=== PATIENT | female | born 1965 | race African-American/Black ===

== ENCOUNTER 2019-05-20 11:59 | Emergency (ER) | payer OTHER ==
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
[2019-05-20] MEDS ORDERED: morphine CARPU-JECT 2 MG/1 ML DISP.SYRIN IVPUSH ONE (12:41)
[2019-05-20] MEDS ORDERED: KETOROLAC TROMETHAMINE 30 MG/1 ML VIAL IM ONE (12:48)
[2019-05-20 12:51] VITALS: BP 167/78; PULSE 81; TEMP 98.5; BMI 54.6
[2019-05-20] MEDS ORDERED: KETOROLAC TROMETHAMINE 30 MG/1 ML VIAL ONE (12:54)
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
== END 2019-05-20 14:47 | disposition home or self-care (01) ==
LOC: JER 11:59
PROC: 3E0233Z Introduction of Anti-inflammatory into Muscle, Percutaneous Approach (ICD-10-PCS; principal; 2019-05-20)
DX: S13.4XXA Sprain of ligaments of cervical spine, initial encounter (principal); V43.52XA Car driver injured in collision with other type car in traffic accident, initial encounter; Y93.89 Activity, other specified; Y92.410 Unspecified street and highway as the place of occurrence of the external cause; I10 Essential (primary) hypertension; E11.9 Type 2 diabetes mellitus without complications; I25.10 Atherosclerotic heart disease of native coronary artery without angina pectoris
CPT/HCPCS: 70450-TC; 84703; 99281-25

== ENCOUNTER 2019-10-21 07:02 | Day surgery (SDC) | payer OTHER ==
[2019-10-19 12:41] VITALS: BMI 45.1
[2019-10-21] MEDS ORDERED: MIDAZOLAM HCL 2 MG/2 ML SINGLE DOSE VIAL ONE (07:48)
[2019-10-21] MEDS ORDERED: ROPIVACAINE HCL 0.5% 30ML VIAL ONE (07:48)
[2019-10-21] MEDS ORDERED: PROPOFOL 20 ML ONE ×2 (08:50)
[2019-10-21] MEDS ORDERED: KETAMINE HCL 200 MG/20 ML VIAL ONE (08:51)
[2019-10-21] MEDS ORDERED: SODIUM CHLORIDE 0.9% P/F 10 ML VIAL IJ ONE (08:54)
[2019-10-21] MEDS ORDERED: ceFAZolin SODIUM 1 GM VIAL ONE ×2 (08:54→08:56)
[2019-10-21] MEDS ORDERED: KETOROLAC TROMETHAMINE 30 MG/1 ML VIAL ONE (08:54)
[2019-10-21] MEDS ORDERED: oxyCODONE HCL 5 MG TABLET PO PRN ×2 (09:24)
[2019-10-21] MEDS ORDERED: ONDANSETRON 4 MG/2 ML VIAL IVPUSH PRN (09:24)
[2019-10-21] MEDS ORDERED: LACTATED RINGERS SOLUTION 1,000 ML IV SCH (09:30)
[2019-10-21 10:27] VITALS: TEMP 97.6
[2019-10-21 11:47] VITALS: BP 148/82; PULSE 64
--- NOTE | 2019-10-21 13:22 | OP ---
DATE OF OPERATION: 10/21/2019 Done at [facility] SURGEON: Amelie Vallejo MD IMPLEMENTATION ANALYST: CANDIDA Gil PREOPERATIVE DIAGNOSES: 1. Left shoulder adhesive capsulitis. 2. Left shoulder impingement syndrome. 3. Left shoulder acromioclavicular degenerative joint disease. 4. Left shoulder superior labral tear, anterior and posterior with synovitis. 5. Left shoulder biceps tendon tear. POSTOPERATIVE DIAGNOSES: 1. Left shoulder adhesive capsulitis. 2. Left shoulder impingement syndrome. 3. Left shoulder acromioclavicular degenerative joint disease. 4. Left shoulder superior labral tear, anterior and posterior with synovitis. 5. Left shoulder biceps tendon tear. PROCEDURES: 1. Left shoulder arthroscopy with lysis and resection of adhesions, CPT code 94235. 2. Left shoulder arthroscopy with subacromial decompression, CPT code 07034. 3. Left shoulder arthroscopy with resection of distal clavicle acromioclavicular joint, CPT code 07063. 4. Left shoulder arthroscopy with debridement, CPT code 73369. 5. Left shoulder arthroscopy with biceps tendon release, CPT code 94711. FINDINGS: 1. Glenohumeral synovitis extensive with scar tissue and adhesions with extensive synovitis. 2. Biceps tendon tear with dislocation out of the biceps groove anteriorly and grade 4 superior labral tear anterior, posterior. 3. Posterior labral fraying. 4. Anterior labral fraying. 5. Partial rotator cuff tear, anterior supraspinatus 15%. 6. Type 3 acromion with anterior spur. 7. Inferior spurs to clavicle, acromioclavicular joint disease. 8. with adhesions and scar tissue. PROCEDURE: Informed consent was obtained. The patient was taken to the operating room, where the upper extremity was prepped and draped in a sterile fashion. A scalene block was performed by Anesthesia. Manipulation under anesthesia was allowed for full range of motion. Using standard arthroscopic technique, a posterior incision portal was made, which allowed for introduction of a camera into the glenohumeral joint. Under direct visualization, an anterior incision and portal was made. Extensive and thickened synovitis was debrided. Fraying of the labrum was debrided and the superior labrum from anterior to posterior was identified with all loose areas debrided. Any labral tears were taken to a stable rim including identified SLAP lesions. All loose cartilage was debrided. The rotator cuff was identified and evaluated, as were the subacromial and bursal surfaces. The posterior incision portal was redirected to the subacromial space, where a lateral incision and portal was made. Excessive and thickened synovium was removed throughout the subacromial space including the anterior scar tissue, posterior bursa and lateral bursa. The type 2 acromion was converted to a flattened type 1, removing the anterior and lateral spurring. An accessory portal was made at the acromioclavicular joint, removing the inferior spur of the distal clavicle at the acromioclavicular joint allowing for a distal clavicle partial resection. Please note that 1cm of undersurface of clavicle was removed extending into the intra articular portion and through an accessory portal. The shoulder was once again reexamined and all impingement was removed. The shoulder was drained. A single suture was placed in all portals and a sterile dressing was placed. The patient was transferred to the recovery room without complication. Due to the extensive nature and tearing of the biceps and attachment to the superior labrum, a release was performed to allow for release of it taking the tendon out of the joint. The PA listed above was present and assisted at surgery. Their presence was absolutely medically necessary for the completion of the procedure. They helped hold the arthroscopy, pass instruments (and implants when indicated) and the procedure could not have been completed without their assistance. AMELIE VALLEJO M.D. [id number]
== END 2019-10-21 11:48 | disposition home or self-care (01) ==
LOC: FASU 07:02
PROVIDERS: ATTEND Orthopaedic Surgery
PROC: 0RBK4ZZ Excision of Left Shoulder Joint, Percutaneous Endoscopic Approach (ICD-10-PCS; 2019-10-21)
PROC: 0RNK4ZZ Release Left Shoulder Joint, Percutaneous Endoscopic Approach (ICD-10-PCS; 2019-10-21)
PROC: 0RNK4ZZ Release Left Shoulder Joint, Percutaneous Endoscopic Approach (ICD-10-PCS; 2019-10-21)
PROC: 0PBB4ZZ Excision of Left Clavicle, Percutaneous Endoscopic Approach (ICD-10-PCS; principal; 2019-10-21 09:30)
DX: M75.02 Adhesive capsulitis of left shoulder (principal); M75.42 Impingement syndrome of left shoulder; M19.012 Primary osteoarthritis, left shoulder; M75.112 Incomplete rotator cuff tear or rupture of left shoulder, not specified as traumatic; S43.432A Superior glenoid labrum lesion of left shoulder, initial encounter; S46.212A Strain of muscle, fascia and tendon of other parts of biceps, left arm, initial encounter; X58.XXXA Exposure to other specified factors, initial encounter; Y93.9 Activity, unspecified; Y92.9 Unspecified place or not applicable
CPT/HCPCS: 94760

== ENCOUNTER 2022-09-19 06:09 | Day surgery (SDC) | payer OTHER ==
[2022-09-16 11:23] VITALS: BMI 51.3
[2022-09-19] MEDS ORDERED: BUPIVACAINE HCL/PF 2.5 MG/ML - 30 ML VIAL IJ ONE (07:06)
[2022-09-19] MEDS ORDERED: PROPOFOL 20 ML ONE (07:11)
[2022-09-19] MEDS ORDERED: MIDAZOLAM HCL 2 MG/2 ML SINGLE DOSE VIAL ONE (07:11)
[2022-09-19] MEDS ORDERED: LIDOCAINE HCL 2% 100 MG/5 ML DISP.SYRIN ONE (07:11)
[2022-09-19] MEDS ORDERED: ceFAZolin SODIUM 1 GM VIAL ONE (07:58)
[2022-09-19] MEDS ORDERED: DEXAMETHASONE SOD PHOSPHATE 4 MG/1 ML VIAL ONE (07:58)
[2022-09-19] MEDS ORDERED: ONDANSETRON 4 MG/2 ML VIAL ONE ×2 (08:17→09:14)
[2022-09-19] MEDS ORDERED: PROMETHAZINE HCL 25 MG/1 ML VIAL IVPUSH PRN (08:37)
[2022-09-19] MEDS ORDERED: ONDANSETRON 4 MG/2 ML VIAL IVPUSH PRN (08:37)
[2022-09-19] MEDS ORDERED: oxyCODONE HCL 5 MG TABLET PO PRN ×2 (08:37)
[2022-09-19] MEDS ORDERED: FENTANYL CITRATE/PF 50 MCG/ML VIAL ONE ×4 (08:38→09:24)
[2022-09-19] MEDS ORDERED: ACETAMINOPHEN 1000 MG/100 ML BAG IVPB ONE (08:39)
[2022-09-19] MEDS ORDERED: LACTATED RINGERS SOLUTION 1,000 ML IV SCH (08:45)
[2022-09-19] MEDS ORDERED: oxyCODONE HCL 5 MG TABLET ONE ×2 (10:19→10:22)
[2022-09-19 10:42] VITALS: RESP 18
[2022-09-19 11:34] VITALS: BP 133/79; PULSE 73; TEMP 98.1
== END 2022-09-19 11:15 | disposition home or self-care (01) ==
LOC: FASU 06:09
PROVIDERS: ATTEND Orthopaedic Surgery
PROC: 0SBD4ZZ Excision of Left Knee Joint, Percutaneous Endoscopic Approach (ICD-10-PCS; 2022-09-19)
PROC: 0SBD4ZZ Excision of Left Knee Joint, Percutaneous Endoscopic Approach (ICD-10-PCS; principal; 2022-09-19 08:08)
DX: S83.242A Other tear of medial meniscus, current injury, left knee, initial encounter (principal); S83.282A Other tear of lateral meniscus, current injury, left knee, initial encounter; S83.8X2A Sprain of other specified parts of left knee, initial encounter; M65.862 Other synovitis and tenosynovitis, left lower leg; X58.XXXA Exposure to other specified factors, initial encounter; Y93.9 Activity, unspecified; Y92.9 Unspecified place or not applicable
CPT/HCPCS: 94760